=== PATIENT | female | born 1950 | race Hispanic/Latino ===

== ENCOUNTER 2021-12-08 03:39 | Emergency (ER) | payer OTHER ==
--- OUTSIDE RECORDS SUMMARY | 2021-12-08 03:43 | XMS REPORT | Continuity of Care Document ---
:1950 Author Organization [facility] t Address [address] [place] [address] Care Team Providers Name Role Phone Jenny MEJIA, Jose R Primary Care Physician [phone] Adriana Hadley MD Attending Clinician Payers Payer Name Policy Type Policy Number Effective Date Expiration Date S ource Problems Condition Condition Condition Status Onset Resolution Last Treating Co mments Source Name Details Category Date Date Treatment Clinician Date Hydronephr Hydronephr Disease Active Overview : Univers osis, osis, 04-22 Formattin ity of unspecifie unspecifie 00:00: g of this [place] d d 00 note Medical hydronephr hydronephr might be Branch osis type osis type different from the original. Added automatic ally from request for surgery [id number] Urinary Urinary Disease Active Univers incontinen incontinen 04-18 [place] sensory sensory 00 Medical awareness awareness Bran ch Pelvic Pelvic Disease Active Univers mass in mass in 04-18 ity of female female 00:00: [place] [address] Medical Branch Hx of Hx of Disease Active Univers cervical cervical 04-16 ity of cancer cancer 00:00: [place] [address] Medical Branch Other Other Disease Active Univers hydronephr hydronephr 04-16 it y of osis osis 00:00: [place] [address] Medical Branch Iron Iron Disease Active Univers deficiency deficiency 1-20 it y of anemia due anemia due [place] to chronic to chronic 00 Me dical blood loss blood loss Br anch PVD PVD Disease Active Univers (periphera (periphera 1-20 it y of l vascular l vascular [place] disease[place] disease) 00 Medica l Branch Tobacco Tobacco Disease Active Univers abuse abuse 1-20 ity of 00:00: [place] 00 Medical Branch Rectal Rectal Disease Active Univers abscess abscess 1-19 ity of 00:00: [place] 00 Medical Branch Volume Volume Disease Active Univers depletion depletion 2-08 ity of 00:00: [place] 00 Medical Branch Allergies, Adverse Reactions, Alerts Allergy Allergy Status Severity Reaction(s) Onset Inactive Treating Comm ents Source Name Type Date Date Clinician Aspirin Propensi Active Nausea Univers ty to and/or 11-10 ity of adverse Vomiting 00:00: [place] reaction 00 Medical s Branch Nsaids Propensi Active Nausea Upsets Univers (Non-Jin ty to and/or 11-10 stomach ity of roidal adverse Vomiting 00:00: [place] Anti-Inf reaction 00 Medica l lammator s [place] y Drug) Social History Social Habit Start Date Stop Date Quantity Comments Source History [facility] o f Alcohol Std Drinks [facility] History [facility] o f Alcohol Binge [facility] History of tobacco Cigarette Smoker University of use [facility] History [facility] o f Alcohol Frequency [facility] [place] [facility] Alcohol intake 2018-04-14 2018-04-14 0 /d University of 00:00:00 00:00:00 [facility] Cigarettes smoked 2017-03-08 2017-03-08 Univers ity of current (pack per 00:00:00 00:00:00 [facility]) - Reported Branch Tobacco use and 2017-03-08 2017-03-08 Smokeless Universit y of exposure 00:00:00 00:00:00 tobacco non-user [facility] dical [place] Alcohol Comment 2015-08-15 2015-08-15 Has not been Univers ity of 00:00:00 00:00:00 drinking the [place] Medica l past year Branch Sex Assigned At [birth year] Universit y of 00:00:00 00:00:00 [facility] Smoking Status Start Date Stop Date Source Smokes tobacco daily 2017-03-08 00:00:00 Univers ity of [facility] Medications Ordered Filled Start Stop Current Ordering Indication Dosage Frequency Signature Comments Components Source Medication Medication Date Date Medication? Clinician (SIG) Name Name clopidogreL 2021- Yes [id number] 75mg Take 1 Univers 75 mg [id number] tablet by ity of tablet 00:00: 05:59 mouth in [place] 00 :00 the Medical morning Branch for 90 days. acetaminoph Yes 1{tbl} Take 1 Un ina en-codeine 6-19 tablet by ity of (TYLENOL-CO 00:00: mouth [place] DEINE #3) 00 every 6 Medical 300-30 mg (six) Branch tablet hours as needed for Pain (scale 7-10). Immunizations Ordered Filled Immunization Date Status Comments Sour e Immunization Name Name TDAP 2016-08-14 [facility] 00:[facility]00 [facility] Procedures This patient has no known procedures. Encounters Start End Encounter Admission Attending Care Care Encounter Source Date/Time Date/Time Type Type Clinicians Facility Department ID 2018-07-17 2018-07-17 DANO Quiroga [id number] [facility] 00:00:00 00:00:00 Adriana PERRY [id number] i [facility] [id number] Pako as [phone] [address] Results This patient has no known results.
[2021-12-08 05:41] LABS: Absolute Lymphocytes (CBC) 2.7 K/uL (0.7-4.9); Hematocrit 37.8 % (36.0-45.0); Lymphocytes % 27.4 % (15.3-44.8); MCV 93.6 fL (80-100); MPV 7.6 fL (7.6-11.3); RBC Red Blood Cell Count 4.03 M/uL (3.86-4.86)
[2021-12-08 05:58] LABS: Protime INR 1.04
[2021-12-08 06:08] LABS: Albumin 2.9 g/dL (3.4-5.0); Bilirubin Total 0.3 mg/dL (0.2-1.0); Potassium 4.3 mmol/L (3.5-5.1); Protein, Total 6.4 g/dL (6.4-8.2)
--- NOTE | 2021-12-08 06:28 | EDPHYS ---
Physician Documentation [facility] Name: Maria Dolores Hale Age: 71 yrs Sex: Female : 1950 Arrival Date: 12/08/2021 Time: 03:56 Bed 6 Private MD: ED Physician Evette Cagle HPI: 12/08 03:58 This 71 yrs old Female presents to ER via Unassigned with complaints of Rectal sd2 Bleeding. 03:58 71-year-old female presents with chief complaint of rectal bleeding via EMS. She sd2 reports it started Th morning and has been present throughout the day whenever she uses the restroom and she has noticed some blood clots on her pad that she normally wears as well. She states she is sure that this is coming from her rectum and not her vaginal area or anywhere else. She does have a history of hemorrhoids that have bled in the past but she states normally the bleeding stops on its own and is self-limited but this time her bleeding has continued. She denies any associated fevers, chest pain or abdominal pain. She denies any urinary symptoms.. Historical: - Allergies: 04:08 Aspirin; ha1 04:08 Salicylates; ha1 - Home Meds: 04:08 Plavix Oral [Active]; ha1 - Immunization history:: Adult Immunizations up to date. - Social history:: Smoking status: unknown. ROS: 03:58 Constitutional: Negative for fever, chills, and weight loss, Eyes: Negative for injury, sd2 pain, redness, and discharge, ENT: Negative for injury, pain, and discharge, Cardiovascular: Negative for chest pain, palpitations, and edema, Respiratory: Negative for shortness of breath, cough, wheezing. Abdomen/GI: Negative for abdominal pain, nausea, vomiting, diarrhea. Positive for rectal bleeding. MS/Extremity: Negative for injury and deformity, Skin: Negative for injury, rash, and discoloration, Neuro: Negative for headache, numbness and tingling. 03:58 : Negative for dysuria, urinary frequency, hesitancy, urgency and hematuria. sd2 Exam: 03:58 Constitutional: This is a well developed, well nourished patient who is awake, alert, sd2 and in no acute distress. Head/Face: Normocephalic, atraumatic. Eyes: EOMI, normal conjunctiva bilaterally Chest/axilla: Normal chest wall appearance and motion. Nontender with no deformity. Cardiovascular: Regular rate and rhythm with a normal S1 and S2. No gallops, murmurs, or rubs. 2+ distal pulses. Respiratory: Lungs have equal breath sounds bilaterally, clear to auscultation and percussion. No rales, rhonchi or wheezes noted. No increased work of breathing, no retractions or nasal flaring. Abdomen/GI: Soft, non-tender, with normal bowel sounds. No guarding or rebound. No evidence of tenderness throughout. Female : Normal external genitalia. Rectal exam performed with RN flight tower dispatcher at bedside. NO external hemorrhoids visualized. Internal hemorrhoids present with possible small anal fissure at 5 o'clock position. Skin: Warm, dry with normal turgor. Normal color with no rashes, no lesions, and no evidence of cellulitis. MS/ Extremity: Pulses equal, no cyanosis. Neurovascular intact. Full, normal range of motion. Ambulatory without difficulty. Psych: Awake, alert, with orientation to person, place and time. Behavior, mood, and affect are within normal limits. Vital Signs: 04:04 BP 148 / 83; Pulse 78; Resp 16 S; Temp 93.3; Pulse Ox 98% on R/A; Weight 52.16 kg; ha1 Height 5 ft. 3 in. (160.02 cm); 04:12 BP 148 / 83; Pulse 78; Resp 16 S; Temp 98.3; Pulse Ox 98% on R/A; ha1 05:10 BP 122 / 78; Pulse 78; Resp 16 S; Pulse Ox 98% on R/A; ha1 06:12 BP 144 / 71; Pulse 70; Resp 15 S; Pulse Ox 98% on R/A; ha1 04:04 Body Mass Index 20.37 (52.16 kg, 160.02 cm) ha1 MDM: 03:57 Patient medically screened. sd2 03:58 Differential diagnosis: GIB, hemorrhoids, anal fissure, anemia among others. Data sd2 reviewed: vital signs, nurses notes, EMS record. 06:23 Data reviewed: lab test result(s). Counseling: I had a detailed discussion with the sd2 patient and/or guardian regarding: the historical points, exam findings, and any diagnostic results supporting the discharge/admit diagnosis, lab results, the need for outpatient follow up, to return to the emergency department if symptoms worsen or persist or if there are any questions or concerns that arise at home. ED course: labs reviewed. No significant anemia. H\T\H stable. Pt not currently on blood thinners. Appears that bleeding is possibly coming from her internal hemorrhoids. I discussed option for transfer as we do not currently have GI automation and controls manager at our facility. Pt would prefer to not do this since she is stable and having no other significant symptoms. She will try to call GI first thing this morning when they open to be seen today for follow up instead. I advised the patient if her bleeding worsens or persists or she develops any new or worsening symptoms and she is unable to be seen by GI today, she must return to the ER immediately for repeat evaluation. Pt is comfortable with this plan and verbalizes understanding of strict return precautions.. 12/08 03:58 Order name: CBC with Diff; Complete Time: 06:09 sd2 12/08 03:58 Order name: CMP; Complete Time: 06:09 sd2 12/08 03:58 Order name: PT-INR; Complete Time: 06:09 sd2 12/08 03:58 Order name: Ptt, Activated; Complete Time: 06:09 sd2 Administered Medications: No medications were administered Disposition Summary: 12/08/21 06:27 Discharge Ordered Location: Home sd2 Problem: new sd2 Symptoms: are unchanged sd2 Condition: Stable sd2 Diagnosis - Rectal bleeding sd2 - Internal hemorrhoids sd2 Followup: sd2 - With: Mu Campoverde MD - When: Today - Reason: Recheck today's complaints, Continuance of care Followup: sd2 - With: Emergency Department - When: As needed - Reason: Discharge Instructions: - Discharge Summary Sheet sd2 - Hemorrhoids sd2 - Rectal Bleeding sd2 Forms: - Medication Reconciliation Form sd2 - Thank You Letter sd2 - Antibiotic Education sd2 - Prescription Opioid Use sd2 Signatures: Dispatcher [employer] Evette Sevilla MD MD sd2 Cindy Umana RN RN ha1
--- NOTE | 2021-12-08 06:28 | ER ---
Nurse's Notes [facility] Name: Maria Dolores Hale Age: 71 yrs Sex: Female : 1950 Arrival Date: 12/08/2021 Time: 03:56 Bed 6 Private MD: Diagnosis: Rectal bleeding;Internal hemorrhoids Presentation: 12/08 04:04 Chief complaint: EMS states: 71 year old female complaints of rectal bleeding since ha1 Saturday. denies any pain. Coronavirus screen:. Ebola Screen: No symptoms or risks identified at this time. 04:04 Method Of Arrival: EMS: [facility] ha1 04:04 Initial Sepsis Screen: Does the patient meet any 2 criteria? No. Patient's initial ha1 sepsis screen is negative. Does the patient have a suspected source of infection? No. Patient's initial sepsis screen is negative. Risk Assessment: Do you want to hurt yourself or someone else? Patient reports no desire to harm self or others. Onset of symptoms was December 08, 2021. 04:04 Acuity: PENNY 3 ha1 Triage Assessment: 04:08 General: Appears comfortable, Behavior is calm, cooperative. Pain: Denies pain. Neuro: ha1 Level of Consciousness is awake, alert, obeys commands, Oriented to person, place, time, situation. Cardiovascular: Patient's skin is warm and dry. Respiratory: Airway is patent Trachea midline Respiratory effort is even, unlabored, Respiratory pattern is regular, symmetrical. GI: Abdomen is flat, non-distended, Rectal exam: Hemorrhoids noted, by physician Bowel sounds present X 4 quads. Abd is soft and non tender X 4 quads. Reports rectal bleeding, hemorrhoids. : No signs and/or symptoms were reported regarding the genitourinary system. Musculoskeletal: Circulation, motion, and sensation intact. Range of motion:. Historical: - Allergies: 04:08 Aspirin; ha1 04:08 Salicylates; ha1 - Home Meds: 04:08 Plavix Oral [Active]; ha1 - Immunization history:: Adult Immunizations up to date. - Social history:: Smoking status: unknown. Screenin:12 Abuse screen: Denies threats or abuse. Denies injuries from another. Nutritional ha1 screening: No deficits noted. Tuberculosis screening: No symptoms or risk factors identified. Fall Risk None identified. Assessment: 04:12 General: see triage. ha1 05:10 Reassessment: Patient and/or family updated on plan of care and expected duration. Pain ha1 level reassessed. Patient is alert, oriented x 3, equal unlabored respirations, skin warm/dry/pink. 06:12 Reassessment: Patient and/or family updated on plan of care and expected duration. Pain ha1 level reassessed. Patient is alert, oriented x 3, equal unlabored respirations, skin warm/dry/pink. Vital Signs: 04:04 BP 148 / 83; Pulse 78; Resp 16 S; Temp 93.3; Pulse Ox 98% on R/A; Weight 52.16 kg; ha1 Height 5 ft. 3 in. (160.02 cm); 04:12 BP 148 / 83; Pulse 78; Resp 16 S; Temp 98.3; Pulse Ox 98% on R/A; ha1 05:10 BP 122 / 78; Pulse 78; Resp 16 S; Pulse Ox 98% on R/A; ha1 06:12 BP 144 / 71; Pulse 70; Resp 15 S; Pulse Ox 98% on R/A; ha1 04:04 Body Mass Index 20.37 (52.16 kg, 160.02 cm) ha1 ED Course: 03:56 Patient arrived in ED. wm 03:57 Evette Cagle MD is Attending Physician. sd2 04:04 Cindy Umana, KEATON is Primary Nurse. ha1 04:08 Triage completed. ha1 04:08 Arm band placed on right wrist. ha1 04:13 Patient has correct armband on for positive identification. Placed in gown. Bed in low ha1 position. Call light in reach. Side rails up X 1. 05:27 Ptt, Activated Sent. ha1 05:27 CMP Sent. ha1 05:27 PT-INR Sent. ha1 05:27 CBC with Diff Sent. ha1 05:37 Inserted saline lock: 20 gauge in left antecubital area, using aseptic technique. Blood oe collected. 06:26 Mu Campoverde MD is Referral Physician. sd2 06:42 No provider procedures requiring assistance completed. IV discontinued, intact, ha1 bleeding controlled, No redness/swelling at site. Pressure dressing applied. Administered Medications: No medications were administered Medication: 06:43 VIS not applicable for this client. ha1 Outcome: 06:27 Discharge ordered by . sd2 06:43 Discharged to home ambulatory. ha1 06:43 Condition: stable 06:43 Discharge instructions given to patient, Instructed on discharge instructions, follow up and referral plans. Demonstrated understanding of instructions, follow-up care. 06:44 Patient left the ED. ha1 Signatures: Heber Barnes Wendy wm Dunlop, Stephanie, MD MD sd2 Cindy Umana RN RN ha1 Corrections: (The following items were deleted from the chart) 05:30 04:12 BP 148 / 83; Pulse 78bpm; Resp 16bpm; Spontaneous; Pulse Ox 98% RA; ha1 ha1
[2021-12-08 06:53] VITALS: O2SAT 98
[2021-12-08 06:58] VITALS: TEMP 98.3
[2021-12-08 07:07] VITALS: BP 144/71
== END 2021-12-08 06:44 | disposition home or self-care (01) ==
LOC: ER 03:39
DX: K62.5 Hemorrhage of anus and rectum (principal); K64.8 Other hemorrhoids; Z88.6 Allergy status to analgesic agent
CPT/HCPCS: 36415; 80053; 85025; 85610; 85730; 99284